=== PATIENT | female | born 1990 | race African-American/Black ===

== ENCOUNTER 2023-08-20 10:08 | Outpatient (CLI) | payer BC, SELFPAY ==
--- NOTE | ~2023-08-20 | MR_ITS ---
MRI of the right ankle Clinical history: Achilles tendon injury Technique: Coronal proton-density and proton-density fat-sat images, axial proton-density and proton- density fat-sat images, and sagittal proton-density and proton-density fat-sat images were acquired. Findings: Syndesmotic ligaments appear intact. The lateral ankle ligaments are poorly evaluated due t o susceptibility artifact from distal fibular compression plate and interlocking screws. Calcaneofibu lar ligament is probably intact. Anterior and posterior talofibular evidence for poorly visualized, a nd integrity cannot be confirmed. Deltoid ligament is intact. Medial flexor tendons, peroneal tendons, and anterior extensor tendons are intact. There is a complet e rupture of the Achilles tendon, with a 3 cm gap between the distracted portions of the tendon. The tear begins approximately 5 cm proximal from the distal Achilles tendon insertion at the calcaneus. No osteochondral lesion of the talar dome identified. Bone marrow signals appear unremarkable. Visual ized joint spaces appear intact. Plantar fascia intact. There is subcutaneous soft tissue edema predo minantly at the posterior aspect of the ankle. Impression: Complete rupture of the Achilles tendon, as detailed above. Prior ORIF of the distal fibula. Integrity of the anterior and posterior talofibular ligaments cannot be confirmed due to susceptibility artifact. Chronic tearing of these ligaments is possible. Reviewed, dictated and finalized at location . Impression: Complete rupture of the Achilles tendon, as detailed above. Prior ORIF of the distal fibula. Integrity of the anterior and posterior talofi bular ligaments cannot be confirmed due to susceptibility artifact. Chronic tea ring of these ligaments is possible.
== END 2023-08-20 10:09 ==
PROVIDERS: PCP Orthopaedic Surgery; Visit Provider Orthopaedic Surgery
DX: S86.001A Unspecified injury of right Achilles tendon, initial encounter (principal); X58.XXXA Exposure to other specified factors, initial encounter
CPT/HCPCS: 73721